=== PATIENT | male | born 1940 | race Caucasian/White ===

== ENCOUNTER → 2020-01-06 | Outpatient (CLI) | payer MEDICARE ==
[~2020-01-06] MED LIST: METHACHOLINE KIT (J7674) INH ONE; METHACHOLINE KIT (J7674) ONE
--- NOTE | 2020-01-22 14:12 | PFTRPT ---
Height: 68.00 Inches Weight: 206.00 Lbs BSA: 2.07 Diagnosis: R05 DATE OF STUDY: 01/06/2020 ORDERED BY: TRINIDAD Delacruz QUALITY: Study of excellent technical quality. PROCEDURE: Under protocol, methacholine was administered. A dose of 0.25 mg of 1.375 CDUs, a 20% decline in the FEV1 was noted. PC of 0.25 is significant. Flow rates did return to baseline post-bronchodilator administration. IMPRESSION: Positive methacholine challenge study. MTDD
== END ==
LOC: M CARPUL 12:22
PROVIDERS: ATTEND Nurse Practitioner Family
DX: R05 Cough (principal)
CPT/HCPCS: 94070; 95070; J7674